=== PATIENT | female | born 1965 | race African-American/Black ===

== ENCOUNTER 2017-05-25 10:34 | Emergency (ER) | payer OTHER ==
[~2017-05-25] VITALS: Ht 170.2 cm; Wt 90.7 kg
--- NOTE | ~2017-05-25 | CR94 ---
[facility] A Service of [facility] & [facility] RADIOLOGY TEXT RESULTS PATIENT: YANIQUE GOLD LOCATION: [place] : 69 UNIT #: [id number] AGE: [address]: Gina Rausch APRN SEX: F ORDER DR: [id number] [facility] [address] [place], [place] [address] [id number] E MR#: [id number] Acc #: [id number] NAME: YANIQUE GOLD : 1965 SEX: F STUDY DATE/TIME: 05/25/2017 11:02 UNIT: [place] ROOM: STUDY DESCRIPTION: CR Elbow Min 3 Views Rt Attending Physician: Gina Rausch A.P.R.N. Ordering Physician: Ed Doctor [id number] [facility] Primary Care Physician: Generic Doctor Not In System MEDICAL IMAGING REPORT This report is preliminary unless electronic signature is present EXAM 3 views of the right lobe, 05/25/2017 HISTORY Right posterior elbow pain with loss of strength in the hand for 1 week. No known injury. COMPARISON None FINDINGS AP and lateral examination of the elbow shows satisfactory articulation of the humerus with the proximal radius and ulna. There is no identifiable fracture, dislocation, joint effusion, or radiopaque foreign body in the soft tissues. IMPRESSION Normal right elbow. Dictated by... Amy Mendes M.D. THIS IS AN ELECTRONICALLY VERIFIED REPORT Amy Mendes M.D. at 05/26/2017 11:57 AM Adam TD: 05/25/2017 15:37 JOB #: [id number] MEDICAL IMAGING REPORT Page 1 of 1 COPY
[~2017-05-25 10:34] MED LIST: VOLTAREN50 MG PO
== END 2017-05-25 11:50 | disposition home or self-care (01) ==
LOC: CFTX 10:34 → CED 10:34 → CFTX 11:19
DX: M25.521 Pain in right elbow (principal); R20.9 Unspecified disturbances of skin sensation; F17.210 Nicotine dependence, cigarettes, uncomplicated; Z88.5 Allergy status to narcotic agent; Z88.2 Allergy status to sulfonamides; Z88.0 Allergy status to penicillin
CPT/HCPCS: 73080; 99284